=== PATIENT | female | born 1940 | race Asian ===

== ENCOUNTER 2017-08-09 06:05 | Day surgery (SDC) | payer MEDICARE, OTHER ==
[~2017-08-09 06:05] MED LIST: LACTATED RINGERS 1,000 ML IV SCH
[2017-08-09] MEDS ORDERED: NACL BACTERIOSTATIC INFILTRATI ONE (06:53)
[2017-08-09] MEDS ORDERED: MARCAINE 0.5% 30 ML INFILTRATI ONE (07:03)
[2017-08-09] MEDS ORDERED: XYLOCAINE 1% 20 mL ONE (07:03)
--- NOTE | 2017-08-09 07:17 | Anesthesia Consultation ---
Anesthesia Consult and Med Hx Date of service: 08/09/17 - Airway Anesthetic Teeth Evaluation: Good ROM Head & Neck: Adequate Mental/Hyoid Distance: Adequate Mallampati Class: Class II Intubation Access Assessment: Good - Pulmonary Exam CTA: Yes - Cardiac Exam Cardiac Exam: No Murmur - Pre-Operative Health Status ASA Pre-Surgery Classification: ASA2 Proposed Anesthetic Plan: General - Pulmonary Hx Smoking: No - Cardiovascular System Hx Hypertension: Yes (15 YEARS)
--- NOTE | 2017-08-09 07:18 | Anesthesia Day of Surgery ---
Anesthesia Day of Surgery - Day of Surgery Patient Examined: Yes Patient H&P Reviewed: Yes Patient is NPO: Yes
[2017-08-09] MEDS ORDERED: ZOFRAN ONE (07:31)
[2017-08-09] MEDS ORDERED: QUELICIN ONE (07:31)
[2017-08-09] MEDS ORDERED: DECADRON ONE (07:31)
[2017-08-09] MEDS ORDERED: DIPRIVAN 10 MG/ML IV ONE (07:31)
[2017-08-09] MEDS ORDERED: SUBLIMAZE ONE (07:31)
[2017-08-09] MEDS ORDERED: XYLOCAINE CARDIAC IV ONE (07:31)
[2017-08-09] MEDS ORDERED: ZEMURON IV ONE (07:31)
[2017-08-09] MEDS ORDERED: PEPCID IV ONE (07:40)
[2017-08-09] MEDS ORDERED: ZOFRAN IV PRN (07:57)
[2017-08-09] MEDS ORDERED: NARCAN 0.4 MG/1 ML IV PRN (07:57)
[2017-08-09] MEDS ORDERED: DILAUDID IV PRN ×2 (07:57→09:27)
[2017-08-09] MEDS ORDERED: DEMEROL IV PRN (07:57)
[2017-08-09] MEDS ORDERED: VERSED IV NR (08:00)
[2017-08-09] MEDS ORDERED: PEPCID PO NR (08:00)
[2017-08-09] MEDS ORDERED: ANCEF/STERILE WATER 2 GM/20 ML IV NR (08:00)
[2017-08-09] MEDS ORDERED: PEPCID IV NR (08:00)
[2017-08-09] MEDS ORDERED: NACL 0.9% IR ONE (08:38)
[2017-08-09] MEDS ORDERED: XYLOCAINE 1% 20 mL IR ONE (08:38)
[2017-08-09] MEDS ORDERED: MARCAINE 0.5% INFILTRATI ONE (08:38)
[2017-08-09] MEDS ORDERED: ROBINUL ONE (09:12)
[2017-08-09] MEDS ORDERED: BLOXIVERZ ONE (09:12)
[2017-08-09] MEDS: DILAUDID IV PRN ×3 (09:20→10:14)
[2017-08-09] MEDS ORDERED: TYLENOL PO PRN (09:25)
[2017-08-09] MEDS ORDERED: MOTRIN PO PRN (09:25)
--- NOTE | 2017-08-09 09:35 | Discharge Summary ---
Providers - Providers Date of Admission: 08/09/2017 Date of discharge: 08/09/17 Attending physician: AUSTIN GONZALEZ Primary care physician: DARRION HEAD Hospitalization Condition: Good Procedures: laparoscopic hiatal hernia repair and lap umbilical repair Disposition: - TO HOME OR SELFCARE - Discharge Diagnoses (1) Abdominal pain Status: Acute Qualifiers: Abdominal location: epigastric Qualified Code(s): R10.13 - Epigastric pain (2) Umbilical hernia Status: Acute Qualifiers: Obstruction and gangrene presence: without obstruction or gangrene Qualified Code(s): K42.9 - Umbilical hernia without obstruction or gangrene Core Measure Documentation - Palliative Care Palliative Care/ Comfort Measures: Not Applicable - Core Measures Any of the following diagnoses?: none Exam - Constitutional Vitals: Temp Pulse Resp BP Pulse Ox 98.3 F 64 18 178/69 96 08/09/17 06:40 08/09/17 06:40 08/09/17 06:40 08/09/17 06:40 08/09/17 06:40 Plan Follow up with: DARRION HEAD MD [Primary Care Provider] - 7 Days Prescriptions: Ibuprofen [Motrin 600 MG tab] 600 mg PO Q6H PRN #30 tablet PRN Reason: Pain, Mild (1-3)
[2017-08-09] MEDS ORDERED: APRESOLINE ONE (09:48)
[2017-08-09] MEDS ORDERED: APRESOLINE IV NR (09:50)
[2017-08-09] MEDS ORDERED: PERCOCET 5/325 PO SCH (11:05)
[2017-08-09 20:33] VITALS: BP 164/74
== END 2017-08-09 13:00 | disposition home or self-care (01) ==
LOC: OR 06:05
PROVIDERS: ATTEND Specialist
DX: K44.9 Diaphragmatic hernia without obstruction or gangrene (principal); I10 Essential (primary) hypertension
CPT/HCPCS: 43281; C1781; J0330; J0360; J0690; J1100; J1170; J2001; J2405; J2704; J2710; J3010; J7120